=== PATIENT | male | born 1975 | race African-American/Black ===

== ENCOUNTER 2020-08-06 12:41 | Emergency (ER) | payer OTHER ==
[~2020-08-06] VITALS: Ht 175.3 cm; Wt 97.5 kg
[2020-08-06] MEDS ORDERED: KEFLEX500 M1 PO (13:49)
[2020-08-06 14:16] VITALS: BP 124/75
== END 2020-08-06 14:16 | disposition home or self-care (01) ==
LOC: ER 12:41
DX: L03.115 Cellulitis of right lower limb (principal); F17.210 Nicotine dependence, cigarettes, uncomplicated; Z20.828 Contact with and (suspected) exposure to other viral communicable diseases

== ENCOUNTER 2020-10-05 10:30 | Emergency (ER) | payer OTHER ==
[~2020-10-05] VITALS: Ht 172.7 cm; Wt 95.3 kg
[~2020-10-05 10:30] MED LIST: KEFLEX500 M1 PO
[2020-10-05] MEDS ORDERED: MOBIC7.5 MG PO (11:12)
[2020-10-05 11:45] VITALS: BP 125/87
== END 2020-10-05 11:45 | disposition home or self-care (01) ==
LOC: ER 10:30
DX: M25.511 Pain in right shoulder (principal); F17.210 Nicotine dependence, cigarettes, uncomplicated; Z87.442 Personal history of urinary calculi